=== PATIENT | male | born 1945 | race Caucasian/White ===

== ENCOUNTER 2018-06-17 13:49 | Outpatient (CLI) | payer OTHER | END 2018-06-17 18:43 | LOC: AMBL 13:49 | PROVIDERS: ATTEND Internal Medicine | DX: L89.329 Pressure ulcer of left buttock, unspecified stage (principal); N18.9 Chronic kidney disease, unspecified; Z99.2 Dependence on renal dialysis ==

== ENCOUNTER 2018-06-17 18:34 | Outpatient (CLI) | END 2018-06-17 18:43 | LOC: AMBL 18:34 | PROVIDERS: ATTEND Internal Medicine | DX: L89.329 Pressure ulcer of left buttock, unspecified stage (principal); N18.9 Chronic kidney disease, unspecified; Z99.2 Dependence on renal dialysis ==

== ENCOUNTER 2018-06-20 12:27 | Outpatient (CLI) | payer OTHER | END 2018-06-20 12:28 | disposition home or self-care (01) | LOC: LAB 12:27 | PROVIDERS: ATTEND Family Medicine | DX: A04.72 Enterocolitis due to Clostridium difficile, not specified as recurrent (principal) | CPT/HCPCS: 87493 ==

== ENCOUNTER 2018-06-20 15:13 | Outpatient (CLI) | END 2018-06-20 21:40 | LOC: AMBL 15:13 | PROVIDERS: ATTEND Internal Medicine | DX: N18.9 Chronic kidney disease, unspecified (principal); Z99.2 Dependence on renal dialysis; L89.229 Pressure ulcer of left hip, unspecified stage ==

== ENCOUNTER 2018-06-22 16:27 | Outpatient (CLI) | END 2018-06-22 16:28 | disposition home or self-care (01) | LOC: AMBL 16:27 | PROVIDERS: ATTEND Internal Medicine | DX: N18.9 Chronic kidney disease, unspecified (principal); Z99.2 Dependence on renal dialysis; A04.72 Enterocolitis due to Clostridium difficile, not specified as recurrent; L89.329 Pressure ulcer of left buttock, unspecified stage ==

== ENCOUNTER 2018-06-24 13:42 | Outpatient (CLI) | END 2018-06-24 18:01 | LOC: AMBL 13:42 | PROVIDERS: ATTEND Internal Medicine | DX: R53.1 Weakness (principal); R53.83 Other fatigue; I95.9 Hypotension, unspecified; N18.9 Chronic kidney disease, unspecified; Z99.2 Dependence on renal dialysis ==

== ENCOUNTER 2018-06-27 15:05 | Outpatient (CLI) | END 2018-06-27 19:17 | disposition short-term general hospital (02) | LOC: AMBL 15:05 | PROVIDERS: ATTEND Family Medicine | DX: N18.9 Chronic kidney disease, unspecified (principal); Z99.2 Dependence on renal dialysis; L89.90 Pressure ulcer of unspecified site, unspecified stage ==

== ENCOUNTER 2018-06-29 14:17 | Outpatient (CLI) | END 2018-06-29 19:28 | LOC: AMBL 14:17 | PROVIDERS: ATTEND Emergency Medicine | DX: N18.9 Chronic kidney disease, unspecified (principal); Z99.2 Dependence on renal dialysis; L98.419 Non-pressure chronic ulcer of buttock with unspecified severity ==

== ENCOUNTER 2018-07-01 15:18 | Outpatient (CLI) | payer OTHER | END 2018-07-01 19:34 | LOC: AMBL 15:18 | PROVIDERS: ATTEND Emergency Medicine | DX: N18.9 Chronic kidney disease, unspecified (principal); Z99.2 Dependence on renal dialysis; L89.229 Pressure ulcer of left hip, unspecified stage; A04.72 Enterocolitis due to Clostridium difficile, not specified as recurrent ==

== ENCOUNTER 2018-07-04 14:56 | Outpatient (CLI) | payer OTHER | END 2018-07-04 15:04 | LOC: AMBL 14:56 | PROVIDERS: ATTEND Internal Medicine | DX: N18.9 Chronic kidney disease, unspecified (principal); Z99.2 Dependence on renal dialysis ==

== ENCOUNTER 2018-07-04 16:25 | Outpatient (CLI) | payer OTHER | END 2018-07-04 16:26 | disposition home or self-care (01) | LOC: LAB 16:25 | PROVIDERS: ATTEND Nurse Practitioner Family | DX: D64.9 Anemia, unspecified (principal) | CPT/HCPCS: 36415; 85014; 85018; 86850; 86900; 86922 ==

== ENCOUNTER 2018-07-05 08:27 | Outpatient (CLI) | payer OTHER ==
[2018-07-05] MEDS ORDERED: TYLENOL PO STA ×2 (08:46→09:40)
[2018-07-05] MEDS ORDERED: BENADRYL IVP STA ×2 (08:46→09:38)
[2018-07-05] MEDS ORDERED: SOLU-CORTEF 100 MG IVP STA ×2 (08:46→09:39)
[2018-07-05] MEDS ORDERED: BENADRYL ONE (09:44)
[2018-07-05] MEDS ORDERED: TYLENOL ONE (09:44)
[2018-07-05] MEDS ORDERED: SOLU-CORTEF 100 MG ONE (09:44)
[2018-07-05 19:12] VITALS: BP 136/62; TEMP 98.1
== END 2018-07-05 08:28 | disposition home or self-care (01) ==
LOC: OUTPT 08:27
PROVIDERS: ATTEND Nurse Practitioner Family
DX: D64.9 Anemia, unspecified (principal)
CPT/HCPCS: 36415; 36430; 85014; 85018; 86850; 86900; 86922; 96374; 96375

== ENCOUNTER 2018-07-08 15:09 | Outpatient (CLI) | payer OTHER | END 2018-07-08 15:15 | LOC: AMBL 15:09 | PROVIDERS: ATTEND Internal Medicine | DX: N18.9 Chronic kidney disease, unspecified (principal); Z99.2 Dependence on renal dialysis; S71.002A Unspecified open wound, left hip, initial encounter ==

== ENCOUNTER 2018-07-10 15:05 | Outpatient (CLI) | payer OTHER | END 2018-07-10 15:13 | LOC: AMBL 15:05 | PROVIDERS: ATTEND Family Medicine | DX: N18.9 Chronic kidney disease, unspecified (principal); Z99.2 Dependence on renal dialysis ==

== ENCOUNTER 2018-08-18 | Outpatient (CLI) | END 2018-08-18 10:56 | disposition home or self-care (01) ==

== ENCOUNTER 2018-08-20 10:57 | Outpatient (CLI) | END 2018-08-20 15:49 | LOC: AMBL 10:57 | PROVIDERS: ATTEND Internal Medicine Geriatric Medicine | DX: N18.9 Chronic kidney disease, unspecified (principal); Z99.2 Dependence on renal dialysis ==

== ENCOUNTER 2018-08-22 10:45 | Outpatient (CLI) | END 2018-08-22 16:15 | LOC: AMBL 10:45 | PROVIDERS: ATTEND Emergency Medicine | DX: N18.9 Chronic kidney disease, unspecified (principal); Z99.2 Dependence on renal dialysis ==

== ENCOUNTER 2018-08-23 14:26 | Outpatient (CLI) | END 2018-08-23 14:27 | disposition home or self-care (01) | LOC: LAB 14:26 | PROVIDERS: ATTEND Family Medicine | DX: A04.72 Enterocolitis due to Clostridium difficile, not specified as recurrent (principal) | CPT/HCPCS: 87015; 87045; 87899 ==

== ENCOUNTER 2018-08-25 10:48 | Outpatient (CLI) | END 2018-08-25 15:36 | LOC: AMBL 10:48 | PROVIDERS: ATTEND Emergency Medicine | DX: N18.9 Chronic kidney disease, unspecified (principal); Z99.2 Dependence on renal dialysis ==

== ENCOUNTER 2018-08-27 11:17 | Outpatient (CLI) | END 2018-08-27 15:24 | LOC: AMBL 11:17 | PROVIDERS: ATTEND Internal Medicine Geriatric Medicine | DX: N18.9 Chronic kidney disease, unspecified (principal); Z99.2 Dependence on renal dialysis ==

== ENCOUNTER 2018-08-30 10:34 | Outpatient (CLI) | END 2018-08-30 15:17 | LOC: AMBL 10:34 | PROVIDERS: ATTEND Emergency Medicine | DX: N18.9 Chronic kidney disease, unspecified (principal); Z99.2 Dependence on renal dialysis ==